=== PATIENT | male | born 1970 | race Caucasian/White ===

== ENCOUNTER 2018-03-23 19:32 | Emergency (ER) | payer MEDICAID, OTHER ==
[2018-03-23] MEDS: LORAZEPAM 1 MG TAB PO (23:36)
[2018-03-23] MEDS: KETOROLAC 60 MG INJ IM (23:39)
== END 2018-03-24 00:52 | disposition home or self-care (01) ==
LOC: FTE 03-24 00:52
DX: S19.9XXA Unspecified injury of neck, initial encounter (principal); X58.XXXA Exposure to other specified factors, initial encounter; Y92.9 Unspecified place or not applicable
CPT/HCPCS: 96372; 99284-25

== ENCOUNTER 2018-12-10 01:01 | Emergency (ER) | payer SELFPAY, MEDICAID ==
[2018-12-10] MEDS: morphine 4 MG/ML VIAL IM (05:41)
[2018-12-10] MEDS: DEXAMETHASONE 10 MG/ML 1 ML INJ IM (05:41)
[2018-12-10] MEDS: COLCHICINE 0.6 MG TAB PO ×2 (05:42→06:26)
== END 2018-12-10 06:26 | disposition home or self-care (01) ==
LOC: FTE 01:01
DX: M10.9 Gout, unspecified (principal); M17.9 Osteoarthritis of knee, unspecified
CPT/HCPCS: 96372; 99284-25; J1100